=== PATIENT | female | born 1970 | race Caucasian/White ===

== ENCOUNTER 2018-07-27 00:17 | Outpatient (CLI) | payer BC, SELFPAY ==
--- NOTE | 2018-07-27 14:07 | DI.MAMMO_ITS ---
SYMPTOM/DIAGNOSIS: DIAGNOSTIC, 6 MO F/U, F/U ABNL MAMMO, R92.8 RIGHT MAMMOGRAM: Mammograms were interpreted according to the usual protocol including computer analysis with CAD system, tomosynthesis and C view imaging. Comparison is made with 01/14 and 01/22/18. The right breast is composed of scattered fibroglandular densities. Breast density, Category B. No suspicious masses or suspicious microcalcifications are seen. IMPRESSION: Category 1, negative mammogram. Bilateral screening should be resumed in 6 months. SA ASSESSMENT OF FINDINGS: Negative. Category 1. Patient will receive a letter notifying them of these results. BI-RADS category B. There are scattered areas of fibroglandular density.
== END 2018-07-27 00:37 ==
PROVIDERS: PCP Nurse Practitioner Family; Visit Provider Nurse Practitioner Family
DX: Z12.31 Encounter for screening mammogram for malignant neoplasm of breast (principal); R92.8 Other abnormal and inconclusive findings on diagnostic imaging of breast; N64.59 Other signs and symptoms in breast
CPT/HCPCS: 77061; 77065; G0279

== ENCOUNTER 2018-08-16 18:21 | Emergency (ER) | payer BC, SELFPAY ==
[2018-08-16 18:26] VITALS: BP 144/74; PULSE 86; RESP 16; TEMP 36.5; O2SAT 98
--- NOTE | 2018-08-16 18:35 | W.ED.GENAD ---
Discharge Plan Disposition Patient Disposition: HOME Condition: Improving Discharge Details Chief Complaint: FacialProb Clinical Impression: Sialadenitis Reason For Visit: facial swelling on left Primary Care Provider: Yocasta Marrero ED Provider: Flakito Nguyen Home Meds and New Rx's Prescriptions: New amoxicillin-pot clavulanate 875-125 mg tablet 1 tab PO BID 5 Days Qty: 10 RF: 0 Continued norgestimate-ethinyl estradiol [Collin-Linyah] 1 EACH tablet 1 ea PO DAILY RF: 0 omeprazole 20 MG capsule,delayed release(DR/EC) 20 mg PO DAILY RF: 0 Discharge Instructions Additional Instructions: Hard lemon candies or lemon water to induce salivation. Please take Augmentin as prescribed. Return for fever, worsening swelling, or any other acute concerns. Continue your regular medication Medical Decision Making 48-year-old female presents from home with the abrupt onset of the left submandibular swelling while eating. It was not associated with pain and quickly began to decrease on route to the ER. She has not had a fever or overlying warmth. Her exam is unremarkable but is notable for mild left sub-end of the swelling. This is consistent with sialoadenitis and will treat with hard lemon candies and a course of Augmentin. Discussed with her home management as well as return and follow-up precautions. HPI General Mode of arrival: ambulatory. Date/Time Provider Initiated Documentation: 08/16/18 18:21. Limitations to Documentation: no limitations. Information obtained by: patient. History of Present Illness 48 year old F presents to the emergency department with the chief complaint of Left jaw swelling while eating, improved, described as moderate, Quality is described as aching, and is localized to the face and left. Patient reports no radiation. Patient started experiencing this minute(s) and it has been now resolved. No relieving factors improve symptom(s), No exacerbating factors reported . Patient notes no other symptoms.; denies fever/chills and headaches. Patient did receive the following treatments prior to arrival, none Related Data Home Medications Medication Instructions Recorded Confirmed norgestimate-ethinyl estradiol 1 ea PO DAILY 12/11/16 09/28/17 [Collin-Linyah] omeprazole 20 mg PO DAILY tab-cap 01/04/18 amoxicillin-pot clavulanate 1 tab PO BID 5 Days #10 tab 08/16/18 Previous Rx's Medication Instructions Recorded amoxicillin-pot clavulanate 1 tab PO BID 5 Days #10 tab 08/16/18 Allergies Allergy/AdvReac Type Severity Reaction Status Date / Time No Known Allergies Allergy Unverified 09/29/17 08:51 General Stated Complaint: FacialProb MACIE: 3 Review of Systems Review of Systems Four systems reviewed and otherwise neg PFSH Surgical History Appendectomy section EGD - MAC Ligation of fallopian tube STOMACH BX Family History Mother Diabetes Depression Asthma Father Substance abuse Alcohol abuse Heart disease Grandfather Neoplasm Grandmother No problems noted. Sister No problems noted. Sister No problems noted. Sister No problems noted. Sister No problems noted. Brother No problems noted. Son No problems noted. Daughter No problems noted. Exam Narrative Exam Narrative: GEN: awake, alert, oriented 3. Pleasant, well groomed, interactive. HEAD: Normocephalic, atraumatic ENT: Mucous membranes moist, oropharynx unremarkable, External ear exam unremarkable, TMs clear bilaterally. Oropharynx with metal braces, no dental tenderness, no intraoral swelling. Left submandibular swelling. EYES: PERRL, EOMI NECK: Full ROM, no CANDIDO, no menigismus EXT: Full ROM, no edema, no rash Neuro: Grossly normal neurologic exam, conversant, interactive. Psych: Speech fluent, thoughts congruent, affect normal Course Vital Signs Temperature 36.5 C 08/16/18 18:26 Pulse 86 08/16/18 18:26 Respiratory Rate 16 08/16/18 18:26 Blood Pressure 144/74 H 08/16/18 18:26 Pulse Oximetry 98 08/16/18 18:26 Temperature 36.5 C 08/16/18 18:26 Temperature Source Tympanic 08/16/18 18:26 Pulse 86 08/16/18 18:26 Respiratory Rate 16 08/16/18 18:26 Blood Pressure 144/74 H 08/16/18 18:26 Blood Pressure Position Sitting 08/16/18 18:26 Pulse Oximetry 98 08/16/18 18:26 Oxygen Delivery Method Room Air 08/16/18 18:26 Oxygen Flow Rate 0 08/16/18 18:26 Pain Level 0 08/16/18 18:26
--- NOTE | 2018-08-16 18:39 | ED.GENADUL_ITS ---
Discharge Plan Disposition Patient Disposition: HOME Condition: Improving Discharge Details Chief Complaint: FacialProb Clinical Impression: Sialadenitis Reason For Visit: facial swelling on left Primary Care Provider: Yocasta Marrero ED Provider: Flakito Nguyen Home Meds and New Rx's Prescriptions: New amoxicillin-pot clavulanate 875-125 mg tablet 1 tab PO BID 5 Days Qty: 10 RF: 0 Continued norgestimate-ethinyl estradiol [[place]-Linyah] 1 EACH tablet 1 ea PO DAILY RF: 0 omeprazole 20 MG capsule,delayed release(DR/EC) 20 mg PO DAILY RF: 0 Discharge Instructions Additional Instructions: Hard lemon candies or lemon water to induce salivation. Please take Augmentin as prescribed. Return for fever, worsening swelling, or any other acute concerns. Continue your regular medication Medical Decision Making 48-year-old female presents from home with the abrupt onset of the left submandibular swelling while eating. It was not associated with pain and quickly began to decrease on route to the ER. She has not had a fever or over lying warmth. Her exam is unremarkable but is notable for mild left sub-end of the swelling. This is consistent with sialoadenitis and will treat with hard lemon candies and a course of Augmentin. Discussed with her home management as well as return and follow-up precautions. HPI General Mode of arrival: ambulatory . Date/Time Provider Initiated Documentation: 08/16/18 18:21 . Limitations to Documentation: no limitations . Information obtained by: patient . History of Present Illness 48 year old F presents to the emergency department with the chief complaint of Left jaw swelling while eating, improved, described as moderate, Quality is described as aching, and is localized to the face and left. Patient reports no radiation. Patient started experiencing this minute(s) and it has been now resolved. No relieving factors improve symptom(s), No exacerbating factors reported . Patient notes no other symptoms.; denies fever/chills and headaches. Patient did receive the following treatments prior to arrival, none Related Data Home Medications Medication Instructions Recorded Confirmed norgestimate-ethinyl estradiol 1 ea PO DAILY 12/11/16 09/28/17 [[place]-Linyah] omeprazole 20 mg PO DAILY tab-cap 01/04/18 amoxicillin-pot clavulanate 1 tab PO BID 5 Days #10 tab 08/16/18 Previous Rx's Medication Instructions Recorded amoxicillin-pot clavulanate 1 tab PO BID 5 Days #10 tab 08/16/18 Allergies Allergy/AdvReac Type Severity Reaction Status Date / Time No Known Allergies Allergy Unverified 09/29/17 08:51 General Stated Complaint: FacialProb MACIE: 3 Review of Systems Review of Systems Four systems reviewed and otherwise neg PFSH Surgical History Appendectomy section EGD - MAC Ligation of fallopian tube STOMACH BX Family History Mother Diabetes Depression Asthma Father Substance abuse Alcohol abuse Heart disease Grandfather Neoplasm Grandmother No problems noted. Sister No problems noted. Sister No problems noted. Sister No problems noted. Sister No problems noted. Brother No problems noted. Son No problems noted. Daughter No problems noted. Exam Narrative Exam Narrative: GEN: awake, alert, oriented 3. Pleasant, well groomed, interactive. HEAD: Normocephalic, atraumatic ENT: Mucous membranes moist, oropharynx unremarkable, External ear exam unremarkable, TMs clear bilaterally. Oropharynx with metal braces, no dental tenderness, no intraoral swelling. Left submandibular swelling. EYES: PERRL, EOMI NECK: Full ROM, no CANDIDO, no menigismus EXT: Full ROM, no edema, no rash Neuro: Grossly normal neurologic exam, conversant, interactive. Psych: Speech fluent, thoughts congruent, affect normal Course Vital Signs Temperature 36.5 C 08/16/18 18:26 Pulse 86 08/16/18 18:26 Respiratory Rate 16 08/16/18 18:26 Blood Pressure 144/74 H 08/16/18 18:26 Pulse Oximetry 98 08/16/18 18:26 Temperature 36.5 C 08/16/18 18:26 Temperature Source Tympanic 08/16/18 18:26 Pulse 86 08/16/18 18:26 Respiratory Rate 16 08/16/18 18:26 Blood Pressure 144/74 H 08/16/18 18:26 Blood Pressure Position Sitting 08/16/18 18:26 Pulse Oximetry 98 08/16/18 18:26 Oxygen Delivery Method Room Air 08/16/18 18:26 Oxygen Flow Rate 0 08/16/18 18:26 Pain Level 0 08/16/18 18:26
[2018-08-16] MEDS: Amoxicillin 875/Clav. 125 TAB PO (18:45)
== END 2018-08-16 18:50 | disposition home or self-care (01) ==
PROVIDERS: Emergency Provider Emergency Medicine; PCP Nurse Practitioner Family
DX: K11.21 Acute sialoadenitis (principal)
CPT/HCPCS: 99283

== ENCOUNTER 2019-01-10 02:15 | Outpatient (CLI) | payer BC, SELFPAY ==
[2019-01-10 08:00] LABS: Hemoglobin A1C 5.8 % (4.5-6.2)
[2019-01-10 08:42] LABS: ALT 22 U/L (12-78); AST 12 U/L (15-37); Albumin 3.5 g/dL (3.4-5.0); Alkaline Phosphatase 57 U/L (46-116); Anion Gap 10.9 mmol/L (3-11); BUN 15 mg/dL (7-18); Bilirubin, Total 0.3 mg/dL (0.2-1.0); CO2 25.1 mmol/L (21.0-32.0); CREATININE 0.72 mg/dL (0.55-1.02); Calcium 8.6 mg/dL (8.5-10.1); Calculated LDL 85 mg/dL; Chloride 106 mmol/L (98-107); Cholesterol 172 mg/dL (50-200); Glucose 110 mg/dL (70-100); HDL Cholesterol 48 mg/dL (40-60); Potassium 4.3 mmol/L (3.5-5.1); Sodium 142 mmol/L (136-145); Total Protein 6.2 g/dL (6.4-8.2); Triglyceride 197 mg/dL (30-150)
== END 2019-01-10 02:35 ==
PROVIDERS: PCP Nurse Practitioner Family; Visit Provider Nurse Practitioner Family
DX: R73.03 Prediabetes (principal)
CPT/HCPCS: 36415; 80053; 80061; 83721; 83036

== ENCOUNTER 2019-01-24 00:40 | Outpatient (CLI) | payer BC, SELFPAY ==
--- NOTE | 2019-01-24 15:37 | DI.MAMMO_ITS ---
SYMPTOM/DIAGNOSIS: SCREENING, Z12.31 MAMMOGRAMS: Mammograms were interpreted according to the usual protocol including computer analysis with CAD system, tomosynthesis and C view imaging. Comparison is with the prior examinations. No suspicious masses or microcalcifications are seen. There is increased prominence of an area of asymmetric breast tissue in the medial left breast. This area should be further evaluated with a spot compression view. Ultrasound may be indicated at that time. IMPRESSION: Additional views of the left breast as described above. Category 0, breast density B. MQ[facility] ASSESSMENT OF FINDINGS: Incomplete: Needs additional imaging evaluation. Category 0. Patient will receive a letter notifying them of these results. BI-RADS category B. There are scattered areas of fibroglandular density.
== END 2019-01-24 01:00 ==
PROVIDERS: PCP Nurse Practitioner Family; Visit Provider Nurse Practitioner Family
DX: Z12.31 Encounter for screening mammogram for malignant neoplasm of breast (principal); R92.8 Other abnormal and inconclusive findings on diagnostic imaging of breast
CPT/HCPCS: 77063; 77067

== ENCOUNTER 2019-02-11 00:40 | Outpatient (CLI) | payer BC, SELFPAY ==
--- NOTE | 2019-02-11 09:44 | DI.COMBO_ITS ---
SYMPTOM/DIAGNOSIS: INCREASED PROMINENCE OF ASYMMETRIC TISSUE IN MEDIAL LT BREAST ADDITIONAL MAMMOGRAPHIC VIEW, LEFT BREAST: LEFT BREAST ULTRASOUND: 02/11 Additional mammographic views of the left breast and left breast ultrasound were interpreted in conjunction. Additional images are interpreted according to the usual protocol including tomosynthesis and 2D imaging. These examinations were obtained to evaluate questionable area of asymmetric density of the medial portion of the left breast seen on CC view of recent mammogram. Additional mammographic views failed to show a discrete mass. Breast ultrasound shows no evidence of a mass or cyst. CONCLUSION: No specific evidence of malignancy at this time. Follow up unilateral left breast mammogram recommended in six months. Category 3, breast density category B. MQSA ASSESSMENT OF FINDINGS: Probably benign. Six month follow-up recommended. Category 3. Patient will receive a letter notifying them of these results. BI-RADS category B. There are scattered areas of fibroglandular density.
== END 2019-02-11 01:00 ==
PROVIDERS: PCP Nurse Practitioner Family; Visit Provider Nurse Practitioner Family
DX: Z12.31 Encounter for screening mammogram for malignant neoplasm of breast (principal); R92.8 Other abnormal and inconclusive findings on diagnostic imaging of breast; N64.59 Other signs and symptoms in breast
CPT/HCPCS: 76642; 77063; 77067

== ENCOUNTER 2020-05-25 04:43 | Outpatient (CLI) | payer BC, SELFPAY ==
[2020-05-25 09:51] LABS: Hemoglobin A1C 5.8 % (<5.7)
[2020-05-25 10:29] LABS: Anion Gap 7.5 mmol/L (3-11); BUN 14 mg/dL (7-18); CO2 26.5 mmol/L (21.0-32.0); CREATININE 0.83 mg/dL (0.55-1.02); Calcium 9.4 mg/dL (8.5-10.1); Calculated LDL 102 mg/dL (<100); Chloride 105 mmol/L (98-107); Cholesterol 198 mg/dL (<200); Glucose 140 mg/dL (74-106); HDL Cholesterol 60 mg/dL (40-60); Sodium 139 mmol/L (136-145); TSH 2.16 uIU/mL (0.36-3.74); Triglyceride 183 mg/dL (<150)
[2020-05-25 10:51] LABS: FREE T4 1.07 ng/dL (0.76-1.46)
== END 2020-05-25 05:03 ==
PROVIDERS: PCP Nurse Practitioner Family; Visit Provider Otolaryngology Otolaryngology/Facial Plastic Surgery
DX: R73.03 Prediabetes (principal); E04.1 Nontoxic single thyroid nodule; R22.1 Localized swelling, mass and lump, neck; E66.9 Obesity, unspecified
CPT/HCPCS: 36415; 80048; 80061; 83036; 84439; 84443

== ENCOUNTER 2020-06-05 02:32 | Outpatient (CLI) | payer BC, SELFPAY ==
--- NOTE | 2020-06-05 | DI.US_ITS ---
EXAM: US THYROID CLINICAL HISTORY: CYSTIC LESION RT MIDLINE THYROID,LT POSTERIOR NECK MASS, R22.1,E04.1 TECHNIQUE: Ultrasound performed using standard protocol. COMPARISON: US US SOFT TISSUE HEAD OR NECK from 06/05/2020 FINDINGS: Thyroid ultrasound was performed according to the usual protocol. Right thyroid lobe measures 43 x 1 7 x 17 millimeters. Left lobe measures 43 x 13 x 16 millimeters. The isthmus is 5 millimeters in thickness. There is a 15 millimeter in greatest diameter nodule of the right thyroid lobe adjacent to the isthmu s. This is of mixed echogenicity and is predominantly hypoechoic, wider than tall, and has smooth ma rgins and no echogenic foci. This is a TI-RADS level 3, follow-up recommended for size greater than or equal to 1.5 cm. Small cysts are seen in right lobe and left lobe of the thyroid. No other solid mass identified. Th yroid tissue is mildly heterogeneous. IMPRESSION: Right thyroid lobe 15 millimeter in diameter TI-RADS TR 3 lesion, follow-up ultrasound recommended in 12 months. DATA REPOSITORY:
--- NOTE | 2020-06-05 | DI.US_ITS ---
EXAM: US SOFT TISSUE HEAD OR NECK CLINICAL HISTORY: LT POSTERIOR CERVICAL REGION NECK MASS, NECK SWELLING, R22.1 TECHNIQUE: Ultrasound performed using standard protocol. COMPARISON: US US breast LT limited from 02/11/2019 FINDINGS: Soft tissue ultrasound was performed to evaluate questionable palpable left cervical masses. There a re multiple visualized lymph nodes with unremarkable morphology seen which probably correspond to the areas questionable palpable abnormality. Largest node is about 16 millimeters in diameter. No duncan tional mass identified. IMPRESSION: Unremarkable appearance of left cervical lymph nodes which appear to correspond to area of questiona ble palpable abnormality of left cervical region. DATA REPOSITORY:
== END 2020-06-05 02:52 ==
PROVIDERS: PCP Nurse Practitioner Family; Visit Provider Otolaryngology Otolaryngology/Facial Plastic Surgery
DX: R22.1 Localized swelling, mass and lump, neck (principal); E04.1 Nontoxic single thyroid nodule
CPT/HCPCS: 76536

== ENCOUNTER → 2020-07-02 08:01 | Outpatient (CLI) | payer BC, SELFPAY ==
[2020-07-02 08:23] LABS: Abs Immature Grans 0.02 10^3/uL (0.0-0.06); Absolute Basophil Count 0.03 10^3/uL (0.0-0.2); Absolute Monocyte Count 0.41 10^3/uL (0.1-0.8); Absolute Neutrophil Count 5.78 10^3/uL (1.2-6.7); Basophils % 0.3; Eosinophils % 1.2; HCT 39.3 % (36.0-46.0); HGB 13.3 g/dL (11.2-15.7); Immature Grans % 0.2; Lymphocytes % 26.6; MCH 30.8 pg (27.0-33.0); MCHC 33.8 % (32.0-36.0); MPV 11.2 fL (8.0-11.0); Monocytes % 4.7; Nucleated RBC 0 %; Platelet Count 221 10^3/uL (130-400); RBC 4.32 10^6/uL (3.93-5.22); RDW 12.2 % (11.7-14.6); RDW-SD 40.5 fL; WBC 8.64 10^3/uL (4.4-10.8)
[2020-07-02 09:27] LABS: TSH (W/Ref FT4) 1.78 uIU/mL (0.36-3.74)
[2020-07-03 12:23] LABS: Toxoplasma Ab, IgG Negative (Negative)
[2020-07-04 12:20] LABS: EBNA IgG Positive (Negative); EBV Interpretation (See Note); VCA IgG Positive (Negative); VCA IgM Negative (Negative)
== END ==
PROVIDERS: PCP Nurse Practitioner Family; Visit Provider Otolaryngology Otolaryngology/Facial Plastic Surgery
DX: R22.1 Localized swelling, mass and lump, neck (principal); E04.1 Nontoxic single thyroid nodule
CPT/HCPCS: 36415; 84443; 85025; 86664; 86665; 86777; 87798

== ENCOUNTER 2020-08-24 02:02 | Outpatient (CLI) | payer BC, SELFPAY ==
[2020-08-25 14:52] LABS: COVID-19 RT-PCR UVMMC Result Positive (Negative)
== END 2020-08-24 02:03 | disposition home or self-care (01) ==
LOC: LBO 02:03
PROVIDERS: PCP Nurse Practitioner Family; Visit Provider Nurse Practitioner Family
DX: Z20.822 Contact with and (suspected) exposure to COVID-19 (principal)
CPT/HCPCS: U0003

== ENCOUNTER 2021-11-06 01:15 | Outpatient (CLI) | payer BC, SELFPAY ==
[2021-11-06 13:35] LABS: Anion Gap 9.2 mmol/L (3-11); BUN 13 mg/dL (7-18); CO2 26.8 mmol/L (21.0-32.0); CREATININE 0.7 mg/dL (0.55-1.02); Calcium 9.2 mg/dL (8.5-10.1); Chloride 104 mmol/L (98-107); Glucose 100 mg/dL (74-106); Potassium 4.6 mmol/L (3.5-5.1); Sodium 140 mmol/L (136-145)
[2021-11-06 13:43] LABS: Hemoglobin A1C 5.7 % (<5.7)
[2021-11-06 13:47] LABS: TSH (W/Ref FT4) 1.13 uIU/mL (0.36-3.74)
== END 2021-11-06 01:16 | disposition home or self-care (01) ==
LOC: LOS 01:16
PROVIDERS: Family Medicine; PCP Nurse Practitioner Family; Visit Provider Nurse Practitioner Family
DX: E03.9 Hypothyroidism, unspecified (principal); R73.03 Prediabetes
CPT/HCPCS: 36415; 80048; 83036; 84443

== ENCOUNTER 2022-07-18 10:02 | Outpatient (CLI) | payer BC, SELFPAY ==
[2022-07-18 14:28] LABS: HCT 37.2 % (36.0-46.0); HGB 12.6 g/dL (11.2-15.7); MCH 30.7 pg (27.0-33.0); MCHC 33.9 % (32.0-36.0); MCV 91 fL (80-95); MPV 11.1 fL (8.0-11.0); Platelet Count 294 10^3/uL (130-400); RDW 12.3 % (11.7-14.6); RDW-SD 40.7 fL; WBC 9.35 10^3/uL (4.4-10.8)
[2022-07-18 15:13] LABS: Hemoglobin A1C 5.5 % (<5.7)
[2022-07-18 15:27] LABS: Anion Gap 5.7 mmol/L (3-11); BUN 10 mg/dL (7-18); CO2 30.3 mmol/L (21.0-32.0); CREATININE 0.8 mg/dL (0.55-1.02); Calcium 9.5 mg/dL (8.5-10.1); Chloride 106 mmol/L (98-107); Estimated GFR 89.71 (mL/min/1.73m2); Glucose 105 mg/dL (74-106); Potassium 3.5 mmol/L (3.5-5.1); Sodium 142 mmol/L (136-145); TSH (W/Ref FT4) 1.56 uIU/mL (0.36-3.74)
[2022-07-18 16:00] LABS: Calculated LDL 85 mg/dL (<100); Cholesterol 189 mg/dL (<200); HDL Cholesterol 50 mg/dL (40-60); Triglyceride 273 mg/dL (<150)
== END 2022-07-18 10:03 | disposition home or self-care (01) ==
PROVIDERS: PCP Nurse Practitioner Family; Visit Provider Nurse Practitioner Family
DX: R73.03 Prediabetes (principal); N93.9 Abnormal uterine and vaginal bleeding, unspecified
CPT/HCPCS: 36415; 80048; 80061; 85027; 83036; 84443

== ENCOUNTER → 2023-03-18 18:16 | Outpatient (CLI) | payer BC, SELFPAY ==
--- NOTE | 2023-03-18 13:45 | DI.US_ITS ---
Exam(s) US LOWER EXTREMITY VENOUS RT EXAM: US LOWER EXTREMITY VENOUS RT CLINICAL HISTORY: right leg pain M79.604 PAIN RT LEG. TECHNIQUE: Lower extremity venous ultrasound performed using grayscale, color-flow, and spectral Do ppler analysis. COMPARISON: No exams were available for comparison FINDINGS: The common femoral, femoral and popliteal veins demonstrate normal compressibility, augmentation, and color Doppler. The posterior tibial veins are patent. No saphenous vein thrombosis or other superfi cial venous thrombosis is seen. No hematoma or Norwood's cyst is seen. IMPRESSION: Negative lower extremity ultrasound. No evidence of DVT. DATA REPOSITORY:
--- NOTE | 2023-03-18 15:22 | DI.RAD_ITS ---
Exam(s) XR LUMBAR SPINE COMPLETE EXAM: XR LUMBAR SPINE COMPLETE CLINICAL HISTORY: Rt leg pain, M79.604, DJD?. TECHNIQUE: 2D digital imaging was performed. Five views. COMPARISON: No exams were available for comparison FINDINGS: BONES: No fracture or destructive lesion. Vertebral body heights are maintained. Minimal facet hyper trophy identified L5-S1. DISKS: Intervertebral disc spaces are maintained. Minimal endplate osteophytes. ALIGNMENT: Lumbar spinal alignment is within normal limits. SOFT TISSUE: Normal. IMPRESSION: minimal degenerative changes. DATA REPOSITORY: RADIATION DOSE DELIVERED:
== END ==
PROVIDERS: PCP Nurse Practitioner Family; Visit Provider Nurse Practitioner Family
DX: M79.604 Pain in right leg (principal)
CPT/HCPCS: 72110; 93971

== ENCOUNTER 2023-06-08 11:30 | Emergency (ER) | payer BC, SELFPAY ==
[2023-06-08] VITALS (37 sets, daily range): BP systolic 133–203; BP diastolic 74–132; PULSE 64–101; RESP 12–25; TEMP 36.5; O2SAT 98
--- NOTE | 2023-06-08 11:30 | RT.EKG_ITS ---
APPROVED REPORT Exam: Resting ECG Reason for Exam: Chest Pain Patient Location: E HR:90 bpm ECG Measurements Heart Rate 90 AXIS MI 161 P 52 QRSd 78 QRS -45 QT 365 T 58 QTc 448 Conclusion Sinus rhythm...normal P axis, V-rate 60- 99 Inferior infarct, old...Q >35mS, II III aVF
[2023-06-08 11:50] LABS: HCT 35.4 % (36.0-46.0); HGB 11.2 g/dL (11.2-15.7); MCH 25.5 pg (27.0-33.0); MCHC 31.6 % (32.0-36.0); MCV 81 fL (80-95); MPV 11.1 fL (8.0-11.0); Platelet Count 321 10^3/uL (130-400); RBC 4.39 10^6/uL (3.93-5.22); WBC 8.66 10^3/uL (4.4-10.8)
--- NOTE | 2023-06-08 12:00 | ED.GENADUL_ITS ---
Discharge Plan Disposition Patient Disposition: Home Condition: Stable Discharge Details Clinical Impression: Atypical chest pain, Hypertension Primary Care Provider: Yocasta Marrero ED Provider: Magi Alamo Home Meds and New Rx's Prescriptions: New aspirin 81 mg capsule 81 mg PO DAILY Qty: 30 0RF Rx Instructions: To 1 tablet daily metoprolol succinate 25 mg tablet extended release 24 hr 25 mg PO DAILY Qty: 30 0RF Rx Instructions: Please take 1 tablet daily Continued multivitamin Tablet 1 tab PO DAILY omeprazole 20 mg capsule,delayed release(DR/EC) 20 mg PO DAILY Qty: 90 3RF No Action norgestimate-ethinyl estradiol [Vinton-Linyah] 0.25-35 mg-mcg tablet 1 tab PO DAILY Qty: 84 4RF Discharge Instructions Instructions: Chest Pain (ED), Hypertension (ED) Additional Instructions: Please follow-up with your PCP within the next 2 to 3 days. You have been placed on a care management list to assist you in getting expedited follow-up. Follow up with primary care provider in 3-5 days. Return to ED sooner if any worsening or concerns. Increase oral fluids. Referrals: Yocasta Marrero NP [Primary Care Provider] - 3 days Discharge Data Discharge Date/Time-TO BE ENTERED AT DEPARTURE: 06/08/23 15:48 Medical Decision Making <Magi Alamo NP - Last Filed: 06/08/23 15:42> 53-year-old female with a past medical history of Oglesby's esophagus, hernia repair abdominal surgery GERD tubal ligation appendectomy presents to the ER with chest pain shortness of breath fatigue palpitations which got worse this morning she also reports some right arm numbness, pain in her left shoulder blade. She presents flushed, hypertensive with a blood pressure initially at 203/96 initial heart rate is 101, she did not take any aspirin this morning. Cardiac workup ordered including serial troponins, CT chest thorax abdomen pelvis Differential diagnosis includes benign to CAD, NSTEMI, AAA, hypertensive crisis, anxiety Spoke with Dr. Nguyen radiologist to was able to view the subclavian artery on the right no evidence for thrombosis or other abnormality noted no arthritis. Patient's blood pressure has improved to 146/62 heart rate is 77, pending repeat troponin at approximately 1442. 1356: Due to patient's past family medical history and presentation with ongoing chest tightness at rest and dizziness upon standing with hypertension will speak with hospitalist for cardiac rule out for admission. Patient was given 324 mg of chewable baby aspirin she verbalizes understanding in the plan of care. Will also trial nitro sublingual. 0.4mg SL Ntg ordered PO. Sublingual nitro brought chest tightness down from a 3, headache increased, Tylenol given. 1428: Hospitalist paged. Heart score is a 4 1504: Nataliia will call back to see if inpatient stress testing is available. 1524: After lengthy discussion with hospitalist it has been determined that patient will be discharged home with close follow-up with PCP due to stress testing availability. Will place patient on low-dose metoprolol daily instruct patient to check blood pressure daily I did discuss strict return instructions and follow-up care with patient. Placed on Baby Asa, and low dose Metoprolol 25 mg daily. 1526: Call made to PCP, Milton lundy, no answer, placed patient on care management list. Lipid panel returns with LDLs 115 discussed results with patient she has been planning on doing aerobic activity which she states that she will continue to do so. Will refer to PCP for further management and reevaluation. This text was generated using [employer] dictation system, please disregard any oddities of phrase or misspellings. Medical Records Medical records reviewed: Yes I reviewed the patient's medical records. Imaging Data Radiologic Study: Imaging: CT Scan Radiologist's impression: IMPRESSION: 1. No evidence of pulmonary embolism. No evidence of aortic dissection. No acute pulmonary abnormality. 2. No acute abdominal or pelvic process. Diverticulosis. Lab Data Lab results reviewed: Yes I reviewed the patient's lab results. Labs: Laboratory Tests Range/Units 06/08/23 06/08/23 06/08/23 11:45 11:45 12:15 WBC (4.4-10.8) 10^3/uL 8.66 RBC (3.93-5.22) 10^6/uL 4.39 Hgb (11.2-15.7) g/dL 11.2 Hct (36.0-46.0) % 35.4 L MCV (80-95) fL 81 MCH (27.0-33.0) pg 25.5 L MCHC (32.0-36.0) % 31.6 L RDW (11.7-14.6) % 16.0 H Plt Count (130-400) 10^3/uL 321 MPV (8.0-11.0) fL 11.1 H PT (9.1-11.1) sec 9.8 INR (0.9-1.1) 1.0 APTT (23.6-32.8) sec 23.1 L Troponin I (<or=60) ng/L < 50 NT-Pro-B Natriuret Pep (<300) pg/mL 62 Cancelled Patient ABO/Rh A Positive Antibody Screen NEGATIVE ECG Data Interpretation: Old inferior infarct <Chirag Molina MD - Last Filed: 06/19/23 07:39> Note: Patient seen, examined, and discussed with RAVI Alamo early in ED course. Based on presentation and course I recommended patient be admitted for continued cardiac monitoring and trending troponin. RAVI Alamo called the hospitalist, Dr. Ellis to admit the patient. ED presentation and course was reviewed. Dr. Ellis evaluated the patient and declined to admit the patient and recommended discharge. RAVI Alamo established discharge plan with the patient. Plan for close outpatient followup. Will request care management involvement to ensure timely followup. HPI <Magi Alamo NP - Last Filed: 06/08/23 15:42> General Mode of arrival: ambulatory . Date/Time Provider Initiated Documentation: 06/08/23 11:41 . Limitations to Documentation: no limitations . Information obtained by: patient, family, RN notes reviewed and old records reviewed . HPI Narrative: 53-year-old female with a past medical history of Oglesby's esophagus, hernia repair abdominal surgery GERD tubal ligation appendectomy presents to the ER with chest pain shortness of breath fatigue palpitations which got worse this morning she also reports some right arm numbness, pain in her left shoulder blade. She presents flushed, hypertensive with a blood pressure initially at 203/96 initial heart rate is 101, she did not take any aspirin this morning. Related Data Home Medications Medication Instructions Recorded Confirmed multivitamin 1 tab PO DAILY 07/18/22 06/09/23 omeprazole 20 mg capsule,delayed 20 mg PO DAILY #90 caps 01/14/23 06/09/23 release norgestimate 0.25 mg-ethinyl 1 tab PO DAILY #84 tabs 01/15/23 06/09/23 estradiol 35 mcg tablet (Vinton-Linyah) aspirin 81 mg capsule 81 mg PO DAILY #30 caps 06/08/23 06/09/23 metoprolol succinate 25 mg 25 mg PO DAILY high blood pressure 06/08/23 06/09/23 tablet,extended release 24 hr #30 tabs Previous Rx's Medication Instructions Recorded omeprazole 20 mg capsule,delayed 20 mg PO DAILY #90 caps 01/14/23 release norgestimate 0.25 mg-ethinyl 1 tab PO DAILY #84 tabs 01/15/23 estradiol 35 mcg tablet (Vinton-Linyah) aspirin 81 mg capsule 81 mg PO DAILY #30 caps 06/08/23 metoprolol succinate 25 mg 25 mg PO DAILY high blood pressure 06/08/23 tablet,extended release 24 hr #30 tabs Allergies Allergy/AdvReac Type Severity Reaction Status Date / Time No Known Allergies Allergy Verified 06/09/23 12:56 General Stated Complaint: Chest Pain MACIE: 2 Review of Systems <Magi Alamo NP - Last Filed: 06/08/23 15:42> All systems reviewed & are unremarkable except as noted in HPI and below Cardiovascular Cardiovascular: Reports chest pain, Reports chest pain at rest, Reports chest pain with activity, Reports leg edema (Bilateral), Reports radiating jaw, neck or arm pain, Reports palpitations and Reports dyspnea Respiratory Respiratory: Reports dyspnea Endocrine Endocrine: Reports palpitations PFSH <Magi Alamo NP - Last Filed: 06/08/23 15:42> All Active Problems (Updated 06/08/23 @ 15:28 by Magi Alamo NP) Hypertension (Chronic) Atypical chest pain (Acute) Endometriosis (Chronic) Abnormal uterine bleeding (Chronic) Depressive disorder (Chronic) IBS (irritable bowel syndrome) (Chronic) GERD with esophagitis (Chronic) Thyroid nodule (Chronic) TI-RADS TR 3 lesion to right thyroid lobe. Reassess 05/2021 Prediabetes (Chronic) Obesity (Chronic) Sensorineural hearing loss (SNHL) of both ears (Chronic) Hearing aids bilaterally Medical History COVID-19 virus infection Tested positive 08/24/20 Barretts esophagus Surgical History H/O hernia repair Pt reports three hernia surgeries during childhood starting at 8 months old. Hx of abdominal surgery For adhesions H/O section (03/19/98) History of esophagogastroduodenoscopy (EGD) (~2017) History of bilateral tubal ligation (03/19/98) S/P appendectomy Complex appendectomy with removal of part of colon she says Family History Mother Depression Type 2 diabetes mellitus COPD (chronic obstructive pulmonary disease) Osteoporosis Father , at 48 Substance abuse Alcohol abuse Heart disease Alcoholic cirrhosis of liver Sister No problems noted. Sister Osteoporosis Sister No problems noted. Sister Cervical cancer Brother No problems noted. Son Alcohol abuse Daughter Bipolar disorder Daughter No problems noted. Maternal Grandfather , at 85 Liver cancer Pancreatic cancer Maternal Grandmother , at 97 Dementia Paternal Grandfather No problems noted. Paternal Grandmother No problems noted. Social History Smoking/Tobacco Use Status: Never Second Hand Exposure: Yes Smoking risk assessment performed?: Yes Alcohol Intake: former Drug use: Rarely Substance use type: former substance user Counseling given: No Counseling provided: none Caregiver/Support person: No Household members: significant other Housing: house Communication Needs: Hard of Hearing Do you need help understanding health information?: Never Pets and animals: Yes Pets and animals: cat(s) Sexually active: Yes Do you think of yourself as: straight/heterosexual Current gender identity: female What is your relationship status?: How often do you talk on the phone with friends or family?: three or more times per week How often do you get together with friends or relatives?: twice per week How often do you attend samaritan or yarsanism services?: 1-3 times per year Do you belong to any clubs or organized social groups?: yes Panel score (0-1 are the most socially isolated patients): 2 What type of physical activity do you participate in: walking and weight lifti ng Duration: decline to answer Frequency: 3-4 times per week Lorrie/Anabaptism: Synagogue Special lorrie needs: No Seatbelt use: always Helmet use: Yes Helmet use: always Drive intox or ride w/intox set key driver: No Do you feel safe in your relationship?: Yes Female Reproductive History Menstrual Age of Menarche: 11 Duration of menses: other Date of last menstrual period: 06/08/23 control method: permanent sterilization (Tubal ligation, on current menses) History History 5 Para 3 Hx # Term Pregnancies Multiple births Hx # Pregnancies Ectopic pregnancies AB induced 1 Hx Number of Living Children 3 AB spontaneous 1 Past Pregnancies Del. Date GA/Weeks # Preg Succ Route Wgt Sex Labor Lgth Anesth esia Location Prov Complic 03/21/88 Yes vaginal 3997.283 g Male 11/24/89 Yes vaginal 4011.458 g Female [facility] 05/19/98 Yes Female [facility] Delivery Date: 05/19/98 Last Updated by: Rosibel Fraire Premie Exam <Magi Alamo NP - Last Filed: 06/08/23 15:42> Narrative Exam Narrative: Constitutional: Alert and oriented x3. Appears stated age. Obese body habitus. Flushed to her chest neck. Head: Normocephalic, no trauma. Eyes: Pupils PERRL, Red reflex noted, EOM's intact. Eyelids symmetrical without lesions, discharge, or swelling. ENT: Bilateral TM's WNL, External ear normal to inspection, no mastoid TTP, swelling, or erythema, Nasal turbinates WNL, no nasal discharge. Normal dentition, Posterior pharynx WNL, no exudate. Chest: RRR, Normal S1, S2, distal pulses intact. Resp: Lungs clear to auscultation bilaterally, no wheezes, rales, or rhonchi. Abdomen: Soft, non-distended, Normoactive bowel sounds all 4 quads. Nontender to palpation all 4 quadrants. Musculoskeletal: Normal gait, 5/5 strength to all four extremities. Skin: No suspicious rashes or lesions. Capillary refill less than 2 sec. Neurologic: Cranial nerves II-XII intact. Alert and oriented x 3. Motor: No deficits noted. Sensory: Intact bilaterally all 4 extremities. Reflexes: DTR's intact bilaterally.. Hematologic/Lymphatic: No ecchymosis, no lymphadenopathy. Course <Magi Alamo NP - Last Filed: 06/08/23 15:42> Vital Signs Vital signs: Vital Signs Temperature 36.5 C 06/08/23 11:33 Pulse 101 H 06/08/23 11:33 Respiratory Rate 18 06/08/23 11:33 Blood Pressure 203/96 H 06/08/23 11:33 Pulse Oximetry 98 06/08/23 11:33 Temperature 36.5 C 06/08/23 11:33 Temperature Source Skin 06/08/23 11:33 Pulse 101 H 06/08/23 11:33 Respiratory Rate 18 06/08/23 11:33 Blood Pressure 203/96 H 06/08/23 11:33 Blood Pressure Position Sitting 06/08/23 11:33 Pulse Oximetry 98 06/08/23 11:33 Oxygen Delivery Method Room Air 06/08/23 11:33 Oxygen Flow Rate 0 06/08/23 11:33 Pain Level 4 06/08/23 11:33 Lab/Test Results Lab/Test Results: Laboratory Tests Range/Units 06/08/23 11:45 WBC (4.4-10.8) 10^3/uL 8.66 RBC (3.93-5.22) 10^6/uL 4.39 Hgb (11.2-15.7) g/dL 11.2 Hct (36.0-46.0) % 35.4 L MCV (80-95) fL 81 MCH (27.0-33.0) pg 25.5 L MCHC (32.0-36.0) % 31.6 L RDW (11.7-14.6) % 16.0 H Plt Count (130-400) 10^3/uL 321 MPV (8.0-11.0) fL 11.1 H
[2023-06-08] MEDS: Normal Saline - Diluent 50 ML VIAL IJ (12:04)
[2023-06-08] MEDS: Omnipaque 350 MG/ML 100 ML BTL IJ (12:05)
[2023-06-08 12:07] LABS: PTT Activated 23.1 sec (23.6-32.8); Prothrombin Time 9.8 sec (9.1-11.1)
--- NOTE | 2023-06-08 12:15 | DI.CT_ITS ---
Exam(s) CT THORAX ABD/PEL CTA EXAM: CT THORAX ABD/PEL CTA CLINICAL HISTORY: Chest Pain. TECHNIQUE: Imaging Protocol: Axial CT angiography was performed with multi-slice acquisition and mu lti-planar and/or 3D reconstructions. CONTRAST MATERIAL: Intravenous: Omnipaque 350 Contrast volume:100 ml COMPARISON: CT CHEST FOR PULMONARY EMBOLUS from 12/10/2016 FINDINGS: CHEST: Pulmonary Arteries: No evidence of filling defects to suggest pulmonary emboli. Tracheobronchial tree: No bronchiectasis or mucus plugging. Mediastinum and Kajal: No dominant adenopathy or fluid collection. Pulmonary parenchyma: No consolidation or dominant measurable mass. Pleura: No effusion. No pneumothorax. Heart: The heart is notdilated. No coronary artery calcifications are seen. Aorta: Thoracic aorta non-dilated. No atherosclerotic changes. Bones: Unremarkable for age. Tubes, Catheters, and Lines: None. ABDOMEN and PELVIS: Liver: Normal size. Normal density. No suspicious measurable mass. Portal, Superior Mesenteric, and Splenic Veins: Unremarkable. Gallbladder and Biliary Tract: No radiodense calculus. No biliary dilatation. Pancreas: Normal density, no abnormal calcifications or inflammatory process. Spleen: Normal. Adrenals: No masses seen. Kidneys: Normal size, contour and axis. No radiodense stones. No obstructive uropathy. No masses seen . Vasculature: Abdominal aorta non-dilated. No atherosclerotic changes. Bowel: Diverticulosis. No evidence of diverticulitis. No obstruction or bowel wall thickening. Appe ndix is unremarkable. Peritoneal Cavity: No ascites, collection or mesenteric inflammatory response. Lymph Nodes: Within normal limits. Soft Tissues: Unremarkable. Bladder: Symmetric distention, no gross wall thickening. Reproductive Organs: Uterus enlarged. Lymph Nodes: Within normal limits. Bones: Unremarkable for age.. IMPRESSION: 1. No evidence of pulmonary embolism. No evidence of aortic dissection. No acute pulmonary abnormali ty. 2. No acute abdominal or pelvic process. Diverticulosis. RADIATION DOSE DELIVERED: Total DLP DATA REPOSITORY: All CT scans at this facility are submitted to the National Radiology Data Registry (NRDR) Dose Index Registry (DIR) with the [employer] (ACR). RADIATION OPTIMIZATION: All CT scans at this facility use at least one of these dose optimization te chniques: automated exposure control; mA and/or kV adjustment per patient size (includes targeted exa ms where dose is matched to clinical indication); or iterative reconstruction.
[2023-06-08 12:21] LABS: NT-proBNP 62 pg/mL (<300); Troponin I < 50 ng/L (<or=60)
[2023-06-08] MEDS: Ondansetron 4 MG/2 ML VIAL IVP (12:38)
--- NOTE | 2023-06-08 13:45 | RT.EKG_ITS ---
APPROVED REPORT Exam: Resting ECG Reason for Exam: Repeat Patient Location: E HR:68 bpm ECG Measurements Heart Rate 68 AXIS NM 180 P 41 QRSd 84 QRS -42 QT 398 T 18 QTc 423 Conclusion Sinus rhythm...normal P axis, V-rate 60- 99 Inferior infarct, old...Q >35mS, II III aVF
[2023-06-08] MEDS: Aspirin 81 MG CHEW (13:46)
[2023-06-08] MEDS: nitroGLYcerin 0.4 MG TAB SL (13:53)
[2023-06-08] MEDS: ACETAMINOPHEN 1,000 MG/100 ML BTL 1000 MG (14:05)
[2023-06-08 14:24] LABS: Troponin I < 50 ng/L (<or=60)
[2023-06-08 15:04] LABS: Lab Add On Test DONE
[2023-06-08 15:17] LABS: Calculated LDL 115 mg/dL (<100); Cholesterol 195 mg/dL (<200); HDL Cholesterol 51 mg/dL (40-60); Triglyceride 146 mg/dL (<150)
--- NOTE | 2023-06-08 23:09 | NUR.NOTE ---
Referral per Magi Alamo to PCP in 2-3 days, see provider note for additional notes on follow up. Put the referral in the care management's adela for follow up assistance.Nursing Note:
== END 2023-06-08 15:48 | disposition home or self-care (01) ==
PROVIDERS: Emergency Provider Registered Nurse Emergency; PCP Nurse Practitioner Family
DX: R07.89 Other chest pain (principal); I10 Essential (primary) hypertension; R94.31 Abnormal electrocardiogram [ECG] [EKG]; Z79.82 Long term (current) use of aspirin
CPT/HCPCS: 36415; 71275; 80061; 85027; 86850; 86900; 86901; 93005; 99285; 74174; 83880; 84484; 85610; 85730; 93010; 99284; J0131; J2405; J3490

== ENCOUNTER → 2023-06-25 00:06 | Outpatient (CLI) | payer BC, SELFPAY ==
--- NOTE | 2023-06-25 06:30 | ETT_ITS ---
APPROVED REPORT Exam: Exercise Treadmill Patient Location: Out-Patient Room/Bed: Stress Nurse: Bridget Duke RN Ordering Provider:NAKUL PICKETT, Contact Number: [phone] BMI: 37.24 Baseline Rhythm: Sinus Rhythm Indications: Atypical chest pain, Medical History Medical History: HTN, obesity, depression, GERD, prediabetes, barrets esophagus Cardiac Medications: Aspirin, metoprolol succinate, omeprazole Allergies: NKA Cardiac Risk Factors: Family hx, HTN, HLD, prediabetes, obesity Previous Cardiac Procedures: None Pretest Chest Pain Characteristics: None Exercise History: Indeterminate Physical Disabilities: None Lung Sounds: Clear to auscultation Heart Sounds: Regular Stress Test Details Test: Exercise stress testing was performed using a Jewel protocol. Rest Stress HR Resting HR Supine: 76 bpm Max Heart Rate (APMHR): 169 bpm Resting HR Standin bpm Target HR (85% APMHR): 144 bpm Max HR Achieved: 158 bpm % of APMHR: 93 Recovery HR: 86 bpm HR response to stress: Normal HR response to stress BP Resting BP Supine: 138/84 mmHg Resting BP Standin/88 mmHg Max BP: 166/70 mmHg Recovery BP: 126/78 mmHg BP response to stress: Normal blood pressure response to stress. ECG Resting ECG: Sinus Rhythm Ectopy: None Stress ECG: Sinus Tachycardia ST Change: No significant ST segment changes noted Arrhythmia: None Recovery ECG: Sinus Rhythm Recovery ST Change: No significant ST segment changes noted Recovery Arrhythmia: Rare PVC Clinical Reason for Termination: Target HR Achieved, Fatigue Stress Symptoms: None Exercise duration: 06 min14 sec Highest Stage Reached: Stage 2: 2.5 mph at 12% grade. Angina Score: None Rate Pressure Product: [id number] Stress ECG Conclusion 1. 1.Normal clinical, ECG, and BP responses to exercise. 2. 2. Negative for inducible ischemia.
== END ==
PROVIDERS: PCP Nurse Practitioner Family; Visit Provider Nurse Practitioner Family
DX: R07.89 Other chest pain (principal)
CPT/HCPCS: 93017

== ENCOUNTER 2024-07-28 08:25 | Outpatient (CLI) | payer BC, SELFPAY ==
[2024-07-28 16:01] LABS: Abs Immature Grans 0.02 10^3/uL (0.0-0.06); Absolute Basophil Count 0.06 10^3/uL (0.0-0.2); Absolute Eosinophil Count 0.12 10^3/uL (0.0-0.7); Absolute Lymphocyte Count 4.57 10^3/uL (1.2-3.4); Absolute Neutrophil Count 3.94 10^3/uL (1.2-6.7); Basophils % 0.6 %; Eosinophils % 1.3 %; HCT 42.2 % (36.0-46.0); HGB 14.3 g/dL (11.2-15.7); Immature Grans % 0.2 %; Lymphocytes % 49.1 %; MCHC 33.9 % (32.0-36.0); MCV 91 fL (80-95); MPV 11.3 fL (8.0-11.0); Monocytes % 6.4 %; Neutrophils % 42.4 %; Platelet Count 233 10^3/uL (130-400); RBC 4.62 10^6/uL (3.93-5.22); RDW 12.2 % (11.7-14.6); RDW-SD 41.1 fL; WBC 9.31 10^3/uL (4.4-10.8)
[2024-07-28 17:02] LABS: Iron 116 ug/dL (50-170); Total Iron Binding Capacity 345 ug/dL (250-450); Transferrin Sat 34 % (15-50)
[2024-07-28 17:13] LABS: Hemoglobin A1C 5.8 % (<5.7)
[2024-07-28 17:14] LABS: ALT 30 U/L (14-59); AST 14 U/L (15-37); Albumin 4.2 g/dL (3.4-5.0); Alkaline Phosphatase 64 U/L (46-116); Anion Gap 9.5 mmol/L (3-11); BUN 10 mg/dL (7-18); Bilirubin, Total 0.22 mg/dL (0.2-1.0); CO2 26.5 mmol/L (21.0-32.0); Calculated LDL 98 mg/dL (<100); Chloride 109 mmol/L (98-107); Cholesterol 164 mg/dL (<200); Estimated GFR 67.78 (mL/min/1.73m2); Ferritin 35 ng/mL (8-252); Glucose 105 mg/dL (74-106); HDL Cholesterol 42 mg/dL (40-60); Potassium 3.8 mmol/L (3.5-5.1); Sodium 145 mmol/L (136-145); TSH (W/Ref FT4) 1.43 uIU/mL (0.36-3.74); Total Protein 7.3 g/dL (6.4-8.2); Triglyceride 120 mg/dL (<150); Vitamin B12 518 pg/mL (193-986); Vitamin D 25 Total 31.7 ng/mL (30-100)
[2024-08-01 11:51] LABS: IgA 137 mg/dL (85-499); Interpretation (See Note); Tissue Transglutaminase IgA <4.0 CU (<20.0)
[2024-08-01 14:10] LABS: ANA Interpretation Negative (Negative)
== END 2024-07-28 08:26 | disposition home or self-care (01) ==
PROVIDERS: PCP Nurse Practitioner Family; Visit Provider Nurse Practitioner Family
DX: Z00.00 Encounter for general adult medical examination without abnormal findings (principal); E04.1 Nontoxic single thyroid nodule; K21.00 Gastro-esophageal reflux disease with esophagitis, without bleeding; R73.03 Prediabetes
CPT/HCPCS: 36415; 80053; 80061; 82306; 82784; 83516; 82607; 82728; 83036; 83540; 83550; 84443; 85025; 86038

== ENCOUNTER → 2025-06-06 00:39 | Outpatient (CLI) | payer BC, SELFPAY ==
--- NOTE | 2025-06-06 07:30 | DI.RAD_ITS ---
Exam(s) XR FOOT RT COMPLETE EXAM: XR FOOT RT COMPLETE CLINICAL HISTORY: right dorsal foot pain,[id number]. TECHNIQUE: 2D digital imaging was performed. COMPARISON: No exams were available for comparison FINDINGS: 3 views No evidence of fracture or diastasis of the Lisfranc joint. There is mild hallux valgus. No degenerative changes seen in the great toe metatarsophalangeal joint. Bone density is normal. No osseous lesions. No radiopaque foreign bodies. IMPRESSION: No acute osseous findings in the foot. There is mild hallux valgus evident. DATA REPOSITORY: RADIATION DOSE DELIVERED:
== END ==
LOC: DI 00:39
PROVIDERS: PCP Nurse Practitioner Family; Visit Provider Nurse Practitioner Family
DX: M79.671 Pain in right foot (principal); M20.21 Hallux rigidus, right foot
CPT/HCPCS: 73630